=== PATIENT | male | born 1960 | race Caucasian/White ===

== ENCOUNTER 2017-05-30 08:51 | Emergency (ER) | payer BC, OTHER ==
[2017-05-30 09:06] VITALS: BP 131/75
--- NOTE | 2017-05-30 09:22 | EDM.PDOC ---
ED HPI GENERAL MEDICAL PROBLEM - General Chief Complaint: General Stated Complaint: ABBEY YANEZ UPPER BODY Time Seen by Provider: 05/30/17 09:05 Source of Information: Reports: Patient, RN, RN Notes Reviewed History Limitations: Reports: No Limitations - History of Present Illness INITIAL COMMENTS - FREE TEXT/NARRATIVE: Patient states he was cutting wood and hauling it at work on Friday. He states since Friday am he has been having muscle pain in the arms, shoulders, chest wall, and back. He states he has been taking 600mg of ibuprofen every 6 hours, which is helpful. He states he at times has sharp pains. He states it is hard to breathe at times. He denies nausea, vomiting, or chest pains. Onset Date: 05/27/17 Duration: Intermittent Location: Reports: Chest, Abdomen, Back, Upper Extremity, Left, Upper Extremity , Right Quality: Reports: Ache, Sharp Improves with: Reports: Medication Worsens with: Reports: Movement Context: Reports: Activity, Exercise, Lifting Associated Symptoms: Reports: No Other Symptoms Treatments [employer] PING PONG TABLE: Reports: NSAIDS Upper Generalized Pain Score (Numeric/FACES): 5 - Related Data Allergies Allergy/AdvReac Type Severity Reaction Status Date / Time No Known Allergies Allergy Verified 05/30/17 08:56 Home Meds: Home Meds . [No Known Home Meds] 05/30/17 [History] Past Medical History - Infectious Disease History Infectious Disease History: Reports: Chicken Pox Social & Family History - Family History Family Medical History: Noncontributory - Tobacco Use Smoking Status *Q: Current Every Day Smoker Years of Tobacco use: 20 Packs/Tins Daily: 1 - Caffeine Use Caffeine Use: Reports: Soda - Alcohol Use Days Per Week of Alcohol Use: 7 Number of Drinks Per Day: 4 Total Drinks Per Week: 28 - Recreational Drug Use Recreational Drug Use: No ED ROS GENERAL - Review of Systems Review Of Systems: ROS reveals no pertinent complaints other than HPI. ED EXAM, GENERAL - Physical Exam Exam: See Below Exam Limited By: No Limitations General Appearance: Alert, WD/WN, No Apparent Distress Nose: Normal Inspection, Normal Mucosa, No Blood Throat/Mouth: Normal Inspection, Normal Lips, Normal Teeth, Normal Voice, No Airway Compromise Head: Atraumatic, Normocephalic Neck: Normal Inspection, Supple, Non-Tender, Full Range of Motion Respiratory/Chest: No Respiratory Distress, Lungs Clear, Normal Breath Sounds, No Accessory Muscle Use Cardiovascular: Normal Peripheral Pulses, Regular Rate, Rhythm, No Edema, No Gallop, No JVD, No Murmur, No Rub Peripheral Pulses: 3+: Radial (L), Radial (R) GI/Abdominal: Normal Bowel Sounds, Soft, Non-Tender, No Organomegaly, No Distention, No Abnormal Bruit, No Mass, Pelvis Stable (Male) Exam: Deferred Rectal (Males) Exam: Deferred Back Exam: Normal Inspection, Decreased Range of Motion, Muscle Spasm Extremities: Normal Inspection, Limited Range of Motion Neurological: Alert, Oriented, Normal Cognition, Normal Gait, No Motor/Sensory Deficits Psychiatric: Normal Affect, Normal Mood Skin Exam: Warm, Dry, Intact, Normal Color, No Rash Lymphatic: No Adenopathy Course - Vital Signs Last Recorded V/S: Last Vital Signs Temp 97.7 F 05/30/17 09:06 Pulse 97 05/30/17 09:06 Resp 16 05/30/17 09:06 BP 131/75 05/30/17 09:06 Pulse Ox 96 05/30/17 09:06 Departure - Departure Time of Disposition: 09:18 Disposition: Home, Self-Care 01 Condition: Good Clinical Impression: Muscle strain - Discharge Information Instructions: Muscle Strain Forms: ED Department Discharge Additional Instructions: Continue taking ibuprofen 600mg orally every 6 hours as needed for muscle pain. Norflex 100mg ER take 1 orally every 12 hours as needed for muscle spasm. DO NOT DRIVE WHILE TAKING THIS MEDICAION. Follow up in the clinic in 3-4 days if no better.
== END 2017-05-30 09:30 | disposition home or self-care (01) ==
LOC: DL.ED 08:51
DX: S29.012A Strain of muscle and tendon of back wall of thorax, initial encounter (principal); F17.210 Nicotine dependence, cigarettes, uncomplicated; X50.0XXA Overexertion from strenuous movement or load, initial encounter
CPT/HCPCS: 99282